=== PATIENT | female | born 1995 | race Caucasian/White ===

== ENCOUNTER 2021-01-06 11:29 | Emergency (ER) | payer OTHER, SELFPAY ==
[2021-01-06 11:47] VITALS: BP 123/85; PULSE 81; RESP 16; TEMP 36.7; O2SAT 99
--- NOTE | 2021-01-06 12:40 | ED.URI ---
HPI - URI/Sore Throat General Chief Complaint: Upper Respiratory Infection Stated Complaint: Sore throat Time Seen by Provider: 01/06/21 12:40 Source: patient Mode of arrival: ambulatory Limitations: no limitations History of Present Illness HPI Narrative: Jennifer Mcgrath is a 25 yo female with no PMH comes to [facility] with a sore throat that started about 4 5 days ago and is gotten worse since then and she has a history of a strep at least once every year Related Data Home Medications Medication Instructions Recorded Confirmed Bc Pill 01/06/21 Allergies Allergy/AdvReac Type Severity Reaction Status Date / Time cefixime [From Suprax] Allergy Hives Verified 01/06/21 12:02 Penicillins Allergy Rash Verified 01/06/21 12:48 Review of Systems Review of Systems: CONSTITUTIONAL: Denies fever, chills, sweats. EYES: Denies visual changes, redness, discharge. ENT: Denies rhinorrhea, congestion, has sore throat, otalgia. CARDIOVASCULAR: Denies chest pain, palpitations, edema. RESPIRATORY: Denies dyspnea, wheezing, cough GASTROINTESTINAL: Denies abdominal pain, nausea, vomiting, diarrhea. GENITOURINARY: Denies dysuria, hematuria, abnormal discharge SKIN: Denies rash or itching. NEUROLOGIC: Denies numbness, or focal weakness. PSYCHIATRIC: Denies anxiety or depression. [facility] Past Medical History Medical History No acute medical problems Family History Family History Other Hypertension Social History Social History (Updated 01/06/21 @ 12:49 by Miya Almodovar CNP) Smoking status: Never smoker Alcohol intake: current Comments At time of signature, I agree with nursing past medical, surgical, social and family history. There is no relevant family history pertinent to the presenting complaint. Exam Narrative: GENERAL: This is a well-nourished, well-developed patient, in mild distress. HEAD: normocephalic, atraumatic. EYES: Sclera clear/white. Vision is grossly intact. EARS: External ears normal. Hearing grossly intact. Ear canals clear, TMs visible NOSE: External nose normal without nasal discharge, nares without redness, no rhinorrhea. THROAT: Mucous membranes moist, posterior pharynx with erythema and exudate NECK: Neck supple, non-tender CARDIOVASCULAR: Regular rate and rhythm without murmurs, gallops, or rubs. RESPIRATORY: Clear to auscultation. Breath sounds equal bilaterally. No wheezes, rales, or rhonchi. GASTROINTESTINAL: Abdomen soft, non-tender, SKIN: warm, intact with no suspicious lesions or rash, good texture and turgor. NEURO: awake, alert, and oriented to person, place and time. There were no obvious focal neurologic abnormalities. Steady gait EXTREMITIES: Normal range of motion. BACK: Nontender without deformity at least Course Course Emergency Course: Patient has sore throat that started 3 to 4 days ago and has been worsening she has a history of getting strep throat Strep test negative; however on exam she has a huge pus pocket the back of her posterior pharynx She has a penicillin allergy can be treated with Augmentin Vital Signs Vital signs: Vital Signs Temperature 98.1 F 01/06/21 11:47 Pulse Rate 81 01/06/21 11:47 Respiratory Rate 16 01/06/21 11:47 Blood Pressure 123/85 01/06/21 11:47 Pulse Oximetry 99 01/06/21 11:47 Temperature 98.1 F 01/06/21 11:47 Pulse Rate 81 01/06/21 11:47 Respiratory Rate 16 01/06/21 11:47 Blood Pressure 123/85 01/06/21 11:47 Pulse Oximetry 99 01/06/21 11:47 MDM - URI/Sore Throat Differential Diagnosis Differential diagnosis: Likely upper respiratory infection, otitis media, sinusitis, viral infection, influenza, pharyngitis and other Lab Data Labs: Strep Screen Presumptive Negative *(Reference Range: Negative)* Critical Care Time Crit
--- NOTE | 2021-01-06 13:23 | PC.NURSE ---
requested strep cx to be canceled.
== END 2021-01-06 13:03 | disposition home or self-care (01) ==
PROVIDERS: Emergency Provider Nurse Practitioner
DX: J02.0 Streptococcal pharyngitis (principal)
CPT/HCPCS: 87880; 99203; G0463